=== PATIENT | female | born 1970 | race Caucasian/White ===

== ENCOUNTER 2017-03-28 11:12 | Emergency (ER) | payer BC ==
[~2017-03-28] VITALS: Ht 157.5 cm; Wt 95.7 kg
[2017-03-28 12:01] LABS: HEMATOCRIT 44.2 % (36.0-46.0); MCH 29.5 PG (29.0-34.0); MCHC 33.9 G/DL (30.0-36.0); MEAN PLAT.VOLUME 10.2 uM^3 (9.5-12.4); PLATELET COUNT 223 K/uL (156-360); RBC DIS.WIDTH-CV 12.6 % (11.8-14.6); RBC DIS.WIDTH-SD 40.4 % (39-53); RED BLOOD COUNT 5.08 M/uL (3.80-5.20); WHITE BLOOD COUNT 10.1 K/uL (4.1-10.2)
[2017-03-28 12:10] LABS: CHLORIDE 108 mEq/L (99-109); POTASSIUM 4.2 mEq/L (3.7-5.4); SODIUM 140 mEq/L (136-147)
[2017-03-28 12:12] LABS: GLUCOSE 117 mg/dL (70-99)
[2017-03-28 12:13] LABS: ANION GAP 10 MEQ/L (2-14)
[2017-03-28 12:14] LABS: TOTAL BILIRUBIN 0.9 mg/dL (0.0-1.0)
[2017-03-28 12:15] LABS: ALKALINE PHOSPHATASE 53 IU/L (3-129)
[2017-03-28 12:17] LABS: GFR ESTIMATE (CALCULATED) 46 mL/min/; UREA NITROGEN (BUN) 23 mg/dL (9-23)
[2017-03-28 12:24] LABS: QUANTITATIVE HCG < 4.0 MIU/ML
[2017-03-28 13:02] LABS: ADD MIUA? YES; BILIRUBIN NEGATIVE; BLOOD SMALL; COLOR YELLOW ((YELLOW)); GLUCOSE (STRIP) NEGATIVE; KETONES NEGATIVE; LEUKOCYTES TRACE; NITRITE NEGATIVE; PROTEIN (STRIP) 100; SPECIFIC GRAVITY 1.012 (1.000-1.030); UROBILINOGEN 0.2 MG/DL (0.2-1.0)
[2017-03-28 13:21] LABS: BACTERIA RARE /HPF; EPITHELIAL CELLS RARE /HPF; HYALINE CASTS 0-5 /LPF; MUCUS 1+ /LPF; RED BLOOD CELLS 0-5 /HPF (0-5); UCUL ADDED? NO; WHITE BLOOD CELLS 0-5 /HPF (0-5)
[2017-03-28 13:35] LABS: LIPASE 25 U/L (1.0-51.0)
[2017-03-28] MEDS ORDERED: NORCO 5/3251 TABLET PO (16:45)
[2017-03-28] MEDS ORDERED: CARAFATE1 GM PO (16:45)
[2017-03-28] MEDS ORDERED: BENTYL10 MG PO (16:45)
[2017-03-28] MEDS ORDERED: ZOFRAN ODT8 MG PO (16:45)
[2017-03-28 16:58] VITALS: BP 119/96
== END 2017-03-28 17:22 | disposition home or self-care (01) ==
LOC: EME 11:12
DX: R10.13 Epigastric pain (principal); R11.2 Nausea with vomiting, unspecified; R19.7 Diarrhea, unspecified; R51 Headache; M54.9 Dorsalgia, unspecified; Z90.49 Acquired absence of other specified parts of digestive tract; Z85.41 Personal history of malignant neoplasm of cervix uteri
CPT/HCPCS: 76705; 80053; 81003; 83690; 84702; 85027; 99281; 99284; J1885; J2270; J2405; J7030